=== PATIENT | male | born 1955 | race Caucasian/White ===

== ENCOUNTER 2024-03-20 12:59 | Emergency (ER) | payer MEDICAID, OTHER ==
[2024-03-20] VITALS (7 sets, daily range): BP systolic 109; BP diastolic 78; PULSE 0–111; RESP 25–29; TEMP 36.83628; O2SAT 0–87
[~2024-03-20] VITALS: Ht 170.2 cm; Wt 82.0 kg
[2024-03-20] MEDS: NOREPINEPHRINE 8MG/250ML PMX 250 ML IV ONE ×2 (13:15→14:34)
[2024-03-20] MEDS ORDERED: PIPERACILLIN/TAZO 3.375G/50ML 50 ML IV ONE (14:00)
[2024-03-20] MEDS ORDERED: VANCOMYCIN 1G PREMIX 200 ML IV ONE (14:00)
[2024-03-20] MEDS ORDERED: EPINEPHRINE 5 MG in SODIUM CHLORIDE 0.9% 245 ML IV ONE (14:00)
[2024-03-20] MEDS ORDERED: VASOPRESSIN 20 UNIT in SODIUM CHLORIDE 0.9% 99 ML IV PRN (14:00)
[2024-03-20] MEDS: VASOPRESSIN 20 UNIT in SODIUM CHLORIDE 0.9% 99 ML IV PRN (14:33)
[2024-03-20 14:57] LABS: BASOPHILS % 0.5 % (0.0-2.0); DIFFERENTIAL COMMENT 0; EOSINOPHILS % 0.6 % (0.0-5.0); HEMATOCRIT. 38.6 % (42.0-52.0); HEMOGLOBIN. 11.9 g/dL (14.0-18.0); LYMPHOCYTES % 48.1 % (20.0-50.0); MEAN CORPUSCULAR HEMOGLOBIN 32.2 pg (28.0-32.0); MEAN CORPUSCULAR HGB CONC 30.9 g/dL (31.0-37.0); MEAN CORPUSCULAR VOLUME 104.2 fL (80.0-94.0); MEAN PLATELET VOLUME 7.5 fl (7.4-10.4); MONOCYTES % 2.6 % (2.0-8.0); NEUTROPHILS % 48.2 % (40.0-76.0); PLATELET 133 x1000/uL (130-400); RED CELL DISTRIBUTION WIDTH 14.5 % (11.6-14.6); WHITE BLOOD COUNT 9.9 x1000/uL (4.5-11.0)
[2024-03-20] MEDS ORDERED: PHENYLEPHRINE 50MG/250ML PMX 250 ML IV PRN (15:00)
[2024-03-20 15:04] LABS: CHLORIDE 108 mEq/L (98-107); POTASSIUM 3.4 mEq/L (3.5-5.1); SODIUM 140 mEq/L (136-145)
[2024-03-20 15:05] LABS: CALCIUM 8.4 mg/dL (8.7-10.4); CARBON DIOXIDE 12 mEq/L (21-32)
[2024-03-20 15:10] LABS: CREATININE 0.9 mg/dL (0.6-1.3); ETHANOL BLOOD 206 mg/dL (<10); UREA NITROGEN BLOOD 6 mg/dL (9-23)
[2024-03-20 15:12] LABS: ALANINE AMINOTRANSFERASE 97 IU/L (10-49); ALBUMIN 2.4 g/dL (3.2-4.8); ASPARTATE AMINOTRANSFERASE 377 IU/L (<34); BILIRUBIN DIRECT 0.2 mg/dL (<=3.0); BILIRUBIN TOTAL 0.3 mg/dL (0.1-1.0)
[2024-03-20 15:16] LABS: CHLORIDE 108 mEq/L (98-107); INR 1.3; POTASSIUM 3.4 mEq/L (3.5-5.1); PROTHROMBIN TIME 14.5 sec (9.6-11.0); SODIUM 140 mEq/L (136-145)
[2024-03-20 15:17] LABS: CARBON DIOXIDE 13 mEq/L (21-32)
[2024-03-20] MEDS: VASOPRESSIN 20 UNIT in SODIUM CHLORIDE 0.9% 99 ML ONE (15:17)
[2024-03-20 15:18] LABS: CALCIUM 8.4 mg/dL (8.7-10.4)
[2024-03-20 15:22] LABS: CREATININE 0.9 mg/dL (0.6-1.3)
[2024-03-20 15:23] LABS: UREA NITROGEN BLOOD 6 mg/dL (9-23)
[2024-03-20 15:38] LABS: LACTIC ACID 12.4 mmol/L (0.4-2.0)
[2024-03-20 15:39] LABS: GLUCOSE 395 mg/dL (70-105)
[2024-03-20 15:40] LABS: GLUCOSE 393 mg/dL (70-105); PROTEIN TOTAL 4.8 g/dL (6.0-8.3); TROPONIN I HIGH SENSITIVITY 636 ng/L (3.0-53)
[2024-03-20] MEDS ORDERED: TENECTEPLASE 50MG/VIAL IV ONE (15:45)
[2024-03-20] MEDS ORDERED: DOPAMINE 400MG/250ML PREMIX 250 ML IV NR (15:53)
[2024-03-20] MEDS ORDERED: TENECTEPLASE 50MG/VIAL IV NR (16:00)
[2024-03-20] MEDS: PHENYLEPHRINE 50MG/250ML PMX 250 ML IV PRN (16:02)
[2024-03-20] MEDS: EPINEPHRINE 5 MG in SODIUM CHLORIDE 0.9% 245 ML IV ONE (16:03)
[2024-03-20] MEDS ORDERED: EPINEPHRINE 10 MG in SODIUM CHLORIDE 0.9% 240 ML IV PRN ×2 (16:30→16:45)
[2024-03-20] MEDS ORDERED: DOPAMINE 800MG PREMIX (DOUBLE) 250 ML IV PRN (16:30)
[2024-03-20] MEDS ORDERED: NOREPINEPHRINE 8MG/250ML PMX 250 ML IV NR (16:45)
[2024-03-20] MEDS ORDERED: NOREPINEPHRINE 32 MG in DEXT 5% WATER 218 ML IV PRN ×2 (16:45→17:00)
[2024-03-20 16:54] LABS: BG BASE EXCESS -23.1 mmol/L (-2.0-3.0); BG DEOXYHEMOGLOBIN 19.7 % (0.0-5.0); BG FRACTION INSPIRED OXYGEN 100; BG HCO3 ACT 10.2 mmol/L (21.0-28.0); BG METHEMOGLOBIN 0.1 % (0.5-1.5); BG OXYGEN SATURATION 80.1 % (94.0-98.0); BG OXYHEMOGLOBIN 79.2 % (94.0-98.0); BG PH 6.877 (7.350-7.450); BG PO2 72.5 mmHg (83.0-108.0); BG SAMPLE SITE RIGHT RADIAL; BG TOTAL HEMOGLOBIN 12.5 g/dL (13.5-17.5); BG VENT MODE VENT - AC
[2024-03-20] MEDS ORDERED: SODIUM BICARBONATE 8.4% 50MEQ/50ML SYR IV NR (17:49)
[2024-03-20] MEDS ORDERED: SODIUM BICARBONATE 150 MEQ in DEXTROSE 5% WATER 850 ML IV SCH (18:30)
== END 2024-03-20 20:53 ==
LOC: ER 12:59 → EDBEDREQ 15:03 → ER 20:53
DX: I46.9 Cardiac arrest, cause unspecified (principal); Z46.82 Encounter for fitting and adjustment of non-vascular catheter
CPT/HCPCS: 80076; 80048; 80320; 83880; 83605; 83690; 85025; 85610; 87040; 84484; 36415; 84145; 71045; 93970; 82805; 82375; 92950; 31500; 93005; 94070; 36556; 96368; 96365; 96366; 99291; 99292; 36600; J3490 ×3; J7050 ×2; J1265; Z7610 ×3; 94002; J3101; J7060; J7070; G0480